=== PATIENT | male | born 1980 | race African-American/Black ===

== ENCOUNTER 2016-05-09 02:25 | Emergency (ER) | payer SELFPAY ==
[2016-05-09] MEDS ORDERED: Ondansetron HCl/PF 4 MG/2 ML Vial ONE (02:34)
[2016-05-09] MEDS ORDERED: Ketorolac Tromethamine 30 MG/ML VIAL ONE (02:34)
[2016-05-09] MEDS ORDERED: Benzonatate 100 MG CAP ONE (02:43)
[2016-05-09 03:32] LABS: ALT (SGPT) 29 U/L (0-55); AST (SGOT) 28 U/L (5-34); Alkaline Phosphatase 72 U/L (40-150); Anion Gap 13 mmol/L (10-20); BUN (Urea Nitrogen) 9 mg/dL (8.9-20.6); Bilirubin, Total 0.4 mg/dL (0.2-1.2); Calc. Creatinine Clearance 0 mL/min (70-130); Calcium 8.4 mg/dL (7.8-10.44); Carbon Dioxide 23 mmol/L (22-29); Chloride 107 mmol/L (98-107); Estimated GFR-MDRD Greater than 90; Globulin 3.1 g/dL (2.4-3.5); Protein, Total 7.1 g/dL (6.0-8.3)
[2016-05-09 03:40] LABS: Mean Platelet Volume 8.4 fL (7.4-10.4); Red Blood Cell (RBC) Count 4.31 mill/uL (4.70-6.10)
[2016-05-09 03:41] LABS: Neutrophil 70 % (42-75)
--- NOTE | 2016-05-09 07:04 | RAD ---
CHEST TWO VIEWS 05/09/2016 The heart is normal in size, and the lungs are clear. There is no current sign of pneumonia. No fo yan infiltrate was seen. The mediastinum appears normal, and the trachea is midline. IMPRESSION: No acute thoracic findings. POS: HOME
== END 2016-05-09 04:00 | disposition home or self-care (01) ==
LOC: BURERS 02:25
DX: J11.1 Influenza due to unidentified influenza virus with other respiratory manifestations (principal); Z87.891 Personal history of nicotine dependence
CPT/HCPCS: 36415; 71020; 80053; 85025; 96361; 96374; 96375; J1885; J2405

== ENCOUNTER 2018-11-28 13:27 | Emergency (ER) | payer SELFPAY ==
[2018-11-28 14:23] LABS: ALT (SGPT) 33 U/L (8-55); AST (SGOT) 36 U/L (5-34); Albumin 4.4 g/dL (3.5-5.0); Alkaline Phosphatase 78 U/L (40-150); Anion Gap 16 mmol/L (10-20); BUN (Urea Nitrogen) 11 mg/dL (8.9-20.6); Bilirubin, Total 0.7 mg/dL (0.2-1.2); Calc. Creatinine Clearance 0 mL/min (70-130); Calcium 9.5 mg/dL (7.8-10.44); Carbon Dioxide 24 mmol/L (22-29); Chloride 106 mmol/L (98-107); Estimated GFR-MDRD Greater than 90; Globulin 2.8 g/dL (2.4-3.5); Glucose 74 mg/dL (70-105); Potassium 3.5 mmol/L (3.5-5.1); Protein, Total 7.2 g/dL (6.0-8.3); Sodium 142 mmol/L (136-145)
[2018-11-28 14:25] LABS: #Basophils 0.1 thou/uL (0.0-0.2); #Eosinphils 0.1 thou/uL (0.0-0.7); #Lymphocytes 1.8 thou/uL (1.20-3.40); #Monocytes 1.1 thou/uL (0.11-0.59); #Neutrophils 7.1 thou/uL (1.40-6.50); %Basophils 0.9 % (0.0-1.0); %Lymphocytes 17.3 % (21.0-51.0); %Monocytes 10.5 % (0.0-10.0); %Neutrophils 70.4 % (42.0-75.0); Hemoglobin 13.7 g/dL (14.0-18.0); MDiff Complete? YES; Macrocytosis SLIGHT = 6-15 cells (100X) (0-5/hpf); Mean Corpuscular HGB CONC 32.2 g/dL (32.0-36.0); Mean Corpuscular Hemoglobin 33.8 pg (27.0-31.0); Mean Platelet Volume 7.4 fL (7.4-10.4); Platelet Count 267 thou/uL (130-400); RBC Distribution Width 12.9 % (11.5-14.5); Red Blood Cell (RBC) Count 4.07 mill/uL (4.70-6.10); White Blood Cell (WBC) Count 10.1 thou/uL (4.8-10.8)
--- NOTE | 2018-11-28 20:59 | RAD ---
LEFT THUMB THREE VIEWS: 11/28/18 No prior films were available for comparison. Old traumatic changes are seen at the first MCP joint w ith a bony fragment or two particularly along the lateral aspect of the distal first metacarpal. All of these changes seem old. I do not see anything acute. There is no dislocation. IMPRESSION: Old trauma at the first MCP joint, primarily on the metacarpal side of the joint. POS: HOME
== END 2018-11-28 16:03 | disposition home or self-care (01) ==
LOC: BURERS 13:27
DX: S63.602A Unspecified sprain of left thumb, initial encounter (principal); F41.9 Anxiety disorder, unspecified; F32.9 Major depressive disorder, single episode, unspecified; F20.9 Schizophrenia, unspecified; F17.200 Nicotine dependence, unspecified, uncomplicated; X58.XXXA Exposure to other specified factors, initial encounter
CPT/HCPCS: 36415; 80053; 85025